=== PATIENT | female | born 1990 | race Caucasian/White ===

== ENCOUNTER 2016-12-30 14:41 | Emergency (ER) | payer OTHER ==
--- NOTE | 2016-12-30 16:36 | ER Document Report ---
ED Medical Screen (RME) - General Chief Complaint: Vaginal Bleeding Stated Complaint: VAGINAL BLEEDING Time Seen by Provider: 12/30/16 16:24 Mode of Arrival: Ambulatory Information source: Patient Notes: Reports to the emergency department with complaints of vaginal bleeding. She reports started yesterday. First menses since having her IUD be removed in October. Worried she is having a miscarriage. TRAVEL OUTSIDE OF THE [place] IN LAST 30 DAYS: No - Related Data Allergies/Adverse Reactions: No Known Allergies Allergy (Verified 12/30/16 15:24) Past Medical History - Past Medical History Cardiac Medical History: Denies: Hx Coronary Artery Disease, Hx Heart Attack, Hx Hypertension Pulmonary Medical History: Denies: Hx Asthma, Hx Bronchitis, Hx COPD, Hx Pneumonia Neurological Medical History: Denies: Hx Cerebrovascular Accident, Hx Seizures Renal/ Medical History: Denies: Hx Peritoneal Dialysis Musculoskeltal Medical History: Denies Hx Arthritis Past Surgical History: Reports: Hx Appendectomy. Denies: Hx Hysterectomy - Immunizations Hx Diphtheria, Pertussis, Tetanus Vaccination: Yes
[2016-12-30 16:54] LABS: ABSOLUTE EOSINOPHILS # (AUTO) 0.3 10^3/uL (0.0-0.6); ABSOLUTE LYMPHOCYTES (AUTO) 2.6 10^3/uL (0.5-4.7); ABSOLUTE MONOCYTES (AUTO) 0.5 10^3/uL (0.1-1.4); ABSOLUTE NEUT (AUTO) 4.4 10^3/uL (1.7-8.2); BASOPHILS % (AUTO) 0.4 % (0-2); EOSINOPHILS % (AUTO) 3.9 % (0-6); HEMATOCRIT 40.8 % (36.0-47.0); HEMOGLOBIN 13.8 g/dL (12.0-15.5); HGB HCT DIFFERENCE 0.6; MEAN CORPUSCULAR HEMOGLOBIN 32.1 pg (27.0-33.4); MEAN CORPUSCULAR VOLUME 94 fl (80-97); MONOCYTES % (AUTO) 6.5 % (3-13); RED BLOOD COUNT 4.32 10^6/uL (3.72-5.28); RED CELL DISTRIBUTION WIDTH 11.8 % (11.5-14.0); SEGMENTED NEUTROPHILS % (AUTO) 56.2 % (42-78); WHITE BLOOD COUNT 7.8 10^3/uL (4.0-10.5)
[2016-12-30 17:17] LABS: ALANINE AMINOTRANSFERASE 37 U/L (9-52); ALBUMIN 4.7 g/dL (3.5-5.0); ALKALINE PHOSPHATASE 70 U/L (38-126); ANION GAP 12 (5-19); ASPARTATE AMINO TRANSFERASE 34 U/L (14-36); BILIRUBIN,DIRECT 0.3 mg/dL (0.0-0.4); BILIRUBIN,TOTAL 0.5 mg/dL (0.2-1.3); BLOOD UREA NITROGEN 16 mg/dL (7-20); CALCIUM 9.8 mg/dL (8.4-10.2); CARBON DIOXIDE 28 mmol/L (22-30); CHLORIDE 101 mmol/L (98-107); CREATININE RESULT 0.76 mg/dL (0.52-1.25); GLUCOSE 86 mg/dL (75-110); POTASSIUM 4.1 mmol/L (3.6-5.0); SODIUM 140.8 mmol/L (137-145); TOTAL PROTEIN 8.1 g/dL (6.3-8.2)
--- NOTE | 2016-12-30 18:06 | ER Document Report ---
ED General - General Chief Complaint: Vaginal Bleeding Stated Complaint: VAGINAL BLEEDING Time Seen by Provider: 12/30/16 16:24 Mode of Arrival: Ambulatory Information source: Patient Notes: Patient presents emergency department with complaints of vaginal bleeding and severe abdominal cramps hot flashes and nausea. She reports symptoms started yesterday. She reports she has gone through several panty liners at least 8 and super tampons. She reports that in October she had her IUD removed. This is her first menses since having it removed. She has taken midol without relief of symptoms. Patient reports she is getting next week. TRAVEL OUTSIDE OF THE [place] IN LAST 30 DAYS: No - HPI Onset: Yesterday Onset/Duration: Persistent Quality of pain: Cramping Severity: Moderate Pain Level: 3 Associated symptoms: Nausea Exacerbated by: Denies Relieved by: Denies Similar symptoms previously: No Recently seen / treated by doctor: No - Related Data Allergies/Adverse Reactions: No Known Allergies Allergy (Verified 12/30/16 15:24) Past Medical History - General Information source: Patient Last Menstrual Period: 12/29/16 - Social History Smoking Status: Unknown if Ever Smoked Cigarette use (# per day): No Frequency of alcohol use: None Drug Abuse: None Family History: Reviewed & Not Pertinent Patient has suicidal ideation: No Patient has homicidal ideation: No - Medical History Medical History: Negative - Past Medical History Cardiac Medical History: Denies: Hx Coronary Artery Disease, Hx Heart Attack, Hx Hypertension Pulmonary Medical History: Denies: Hx Asthma, Hx Bronchitis, Hx COPD, Hx Pneumonia Neurological Medical History: Denies: Hx Cerebrovascular Accident, Hx Seizures Renal/ Medical History: Denies: Hx Peritoneal Dialysis Musculoskeltal Medical History: Denies Hx Arthritis Past Surgical History: Reports: Hx Appendectomy. Denies: Hx Hysterectomy - Immunizations Hx Diphtheria, Pertussis, Tetanus Vaccination: Yes Review of Systems - Review of Systems Notes: Review HPI for review of systems., All other systems negative Physical Exam - Vital signs Vitals: Temp Pulse Resp BP Pulse Ox 98.3 F 69 14 108/63 97 12/30/16 18:25 12/30/16 18:25 12/30/16 18:25 12/30/16 18:25 12/30/16 18:25 - Notes Notes: PHYSICAL EXAMINATION: GENERAL: Well-appearing and in no acute distress HEAD: Atraumatic, normocephalic. EYES: Pupils equal round, extraocular movements intact, sclera anicteric, conjunctiva are normal. ENT: nares patent, . Moist mucous membranes. NECK: Normal range of motion, supple without lymphadenopathy LUNGS: CTAB and equal. No wheezes rales or rhonchi. HEART: Regular rate and rhythm without murmurs ABDOMEN: Soft, no tenderness. No guarding, no rebound BACK: Denies back pain EXTREMITIES: Normal range of motion, no pitting edema. No cyanosis. NEUROLOGICAL: Cranial nerves grossly intact. Normal sensory/motor exams. PSYCH: Normal mood, normal affect. SKIN: Warm, Dry, normal turgor, no rashes or lesions noted Course - Re-evaluation Re-evalutation: 12/30/16 18:16 Labs unremarkable. Patient has a primary care provider at [place]. She was instructed on all lab and importance of follow-up. She was instructed to return to ED for increased bleeding, concerns, She verbalized understanding. - Vital Signs Vital signs: Temp Pulse Resp BP Pulse Ox 98.3 F 69 14 108/63 97 12/30/16 18:25 12/30/16 18:25 12/30/16 18:30 12/30/16 18:25 12/30/16 18:25 - Laboratory Result Diagrams: 12/30/16 16:36 12/30/16 16:36 Discharge - Discharge Clinical Impression: Vaginal bleeding Condition: Stable Disposition: HOME, SELF-CARE Instructions: Vaginal Bleeding ([facility]), [facility] [place], Use of [id number] Ibuprofen ([facility]), [employer] Additional Instructions: *You have been evaluated for abdominal cramps, vaginal bleeding *Take ibuprofen or midal as indicated *Follow up with an FIELD RECORDER or the Health department within one week *Return to ED for worsening condition, changes, needs, concerns *Return to ED if not better in 24 hours Referrals: RAÚL BURNETT III, MD [Primary Care Provider] - Follow up as needed
[2016-12-30 18:26] VITALS: BP 108/63
== END 2016-12-30 18:34 | disposition home or self-care (01) ==
LOC: ER 14:41
DX: N93.8 Other specified abnormal uterine and vaginal bleeding (principal); R10.9 Unspecified abdominal pain; R11.0 Nausea
CPT/HCPCS: 36415; 80053; 84702; 85025; 99284

== ENCOUNTER 2017-08-26 20:21 | Emergency (ER) | payer OTHER ==
[2017-08-26] MEDS ORDERED: LORAZEPAM 0.5 MG TABLET PO ONE (20:57)
--- NOTE | 2017-08-26 20:59 | ER Document Report ---
ED Medical Screen (RME) - General Chief Complaint: Chest Pain Stated Complaint: CHEST PAIN, DIFFICULTY BREATHING Time Seen by Provider: 08/26/17 20:56 Mode of Arrival: Ambulatory Information source: Patient Notes: Patient is a 27-year-old female who presents to the ER today for chest pain shortness of breath that began about 6-8 hours ago per patient. Patient states that she just "feels like I cannot take a deep breath." She denies any recent sick symptoms such as cough, runny nose, congestion, wheezing. Patient states she has a history of anxiety. She denies any cardiac history. She states the chest pain is all across her chest. TRAVEL OUTSIDE OF THE [place] IN LAST 30 DAYS: No - Related Data Allergies/Adverse Reactions: No Known Allergies Allergy (Verified 12/30/16 15:24) Past Medical History - General Information source: Patient - Social History Chew tobacco use (# tins/day): No Frequency of alcohol use: None Drug Abuse: None - Past Medical History Cardiac Medical History: Denies: Hx Coronary Artery Disease, Hx Heart Attack, Hx Hypertension Pulmonary Medical History: Denies: Hx Asthma, Hx Bronchitis, Hx COPD, Hx Pneumonia Neurological Medical History: Denies: Hx Cerebrovascular Accident, Hx Seizures Renal/ Medical History: Denies: Hx Peritoneal Dialysis Musculoskeltal Medical History: Denies Hx Arthritis Past Surgical History: Reports: Hx Appendectomy. Denies: Hx Hysterectomy - Immunizations Hx Diphtheria, Pertussis, Tetanus Vaccination: Yes Review of Systems - Review of Systems Cardiovascular: See HPI Respiratory: See HPI Neurological/Psychological: See HPI Physical Exam - Vital signs Vitals: Temp Pulse Resp BP Pulse Ox 98.1 F 117 H 20 140/81 H 100 08/26/17 20:31 08/26/17 20:31 08/26/17 20:31 08/26/17 20:31 08/26/17 20:31 - Notes Notes: PHYSICAL EXAMINATION: GENERAL: Anxious, but in no acute distress. LUNGS: Patient will not take deep breaths, CTAB and equal. No wheezes rales or rhonchi. HEART: Regular rate and rhythm without murmurs PSYCH: Anxious appearing Course - Vital Signs Vital signs: Temp Pulse Resp BP Pulse Ox 98.1 F 117 H 20 140/81 H 100 08/26/17 20:31 08/26/17 20:31 08/26/17 20:31 08/26/17 20:31 08/26/17 20:31
--- NOTE | 2017-08-26 21:35 | RADIOLOGY REPORT (SQ) ---
EXAM DESCRIPTION: CHEST SINGLE VIEW COMPLETED DATE/TIME: 08/26/2017 9:27 pm REASON FOR STUDY: cp, sob COMPARISON: None. EXAM PARAMETERS: NUMBER OF VIEWS: One view. TECHNIQUE: Single frontal radiographic view of the chest acquired. RADIATION DOSE: NA LIMITATIONS: None. FINDINGS: LUNGS AND PLEURA: No opacities, masses or pneumothorax. No pleural effusion. MEDIASTINUM AND HILAR STRUCTURES: No masses. Contour normal. HEART AND VASCULAR STRUCTURES: Heart normal in size. Normal vasculature. BONES: No acute findings. HARDWARE: None in the chest. OTHER: No other significant finding. IMPRESSION: NO ACUTE RADIOGRAPHIC FINDING IN THE CHEST. TECHNICAL DOCUMENTATION: JOB ID: [id number] [employer]- All Rights Reserved
[2017-08-26 23:25] LABS: ABSOLUTE EOSINOPHILS # (AUTO) 0.1 10^3/uL (0.0-0.6); ABSOLUTE LYMPHOCYTES (AUTO) 3.2 10^3/uL (0.5-4.7); ABSOLUTE MONOCYTES (AUTO) 0.5 10^3/uL (0.1-1.4); ABSOLUTE NEUT (AUTO) 5.8 10^3/uL (1.7-8.2); BASOPHILS % (AUTO) 0.2 % (0-2); EOSINOPHILS % (AUTO) 0.9 % (0-6); HEMATOCRIT 37.7 % (36.0-47.0); HEMOGLOBIN 13.1 g/dL (12.0-15.5); LYMPHOCYTES % (AUTO) 33.2 % (13-45); MEAN CORPUSCULAR HEMOGLOBIN 31.9 pg (27.0-33.4); MEAN CORPUSCULAR HGB CONC 34.7 g/dL (32.0-36.0); MEAN CORPUSCULAR VOLUME 92 fl (80-97); MONOCYTES % (AUTO) 5.6 % (3-13); PLATELET COUNT 247 10^3/uL (150-450); RED BLOOD COUNT 4.11 10^6/uL (3.72-5.28); RED CELL DISTRIBUTION WIDTH 11.5 % (11.5-14.0); SEGMENTED NEUTROPHILS % (AUTO) 60.1 % (42-78); TOTAL CELLS COUNTED % (AUTO) 100 %; WHITE BLOOD COUNT 9.6 10^3/uL (4.0-10.5)
[2017-08-26 23:36] LABS: ALANINE AMINOTRANSFERASE 35 U/L (9-52); ALBUMIN 4.6 g/dL (3.5-5.0); ALKALINE PHOSPHATASE 45 U/L (38-126); ANION GAP 11 (5-19); ASPARTATE AMINO TRANSFERASE 22 U/L (14-36); BILIRUBIN,DIRECT 0.1 mg/dL (0.0-0.4); BILIRUBIN,TOTAL 0.3 mg/dL (0.2-1.3); BLOOD UREA NITROGEN 12 mg/dL (7-20); CALCIUM 9.8 mg/dL (8.4-10.2); CARBON DIOXIDE 26 mmol/L (22-30); CHLORIDE 103 mmol/L (98-107); CREATINE KINASE 39 U/L (30-135); GLUCOSE 90 mg/dL (75-110); LIPASE 153.1 U/L (23-300); POTASSIUM 3.6 mmol/L (3.6-5.0); SODIUM 139.9 mmol/L (137-145); TOTAL PROTEIN 7.6 g/dL (6.3-8.2)
[2017-08-26 23:55] LABS: CREATINE KINASE MB < 0.22 ng/mL (<4.55); TROPONIN I < 0.012 ng/mL
--- NOTE | 2017-08-27 00:39 | ER Document Report ---
ED General - General Chief Complaint: Chest Pain Stated Complaint: CHEST PAIN, DIFFICULTY BREATHING Time Seen by Provider: 08/26/17 20:56 Mode of Arrival: Ambulatory Notes: Patient is a 27-year-old female who presents with complaint of pain in her chest that starts in chest and radiates back. She says it hurts to take a deep breath or cough but also hurts to lay back. She says if she leans forward the pain improves. She denies recent fevers. No recent infections. No recent vomiting or diarrhea. No recent cough or congestion or viral type illnesses. She denies previous history of chest pain like this before. She denies any recent stressors or anxiety. Says pain has been ongoing now for several hours. Patient says only family history of heart problems at young ages with her sister. She says her sister has multiple heart problems and did have an AK age 22. She says she is unsure what all her sisters heart problems more. She says that her sister has had heart problems most her life. Patient herself has never had any history of any type of heart problems. Patient does not smoke. She does not drink alcohol. She denies any drugs. She has no other complaints at this time. No recent leg pain or leg swelling. TRAVEL OUTSIDE OF THE [place] IN LAST 30 DAYS: No - Related Data Allergies/Adverse Reactions: No Known Allergies Allergy (Verified 12/30/16 15:24) Past Medical History - General Information source: Patient - Social History Smoking Status: Never Smoker Chew tobacco use (# tins/day): No Frequency of alcohol use: None Drug Abuse: None Family History: Reviewed & Not Pertinent Patient has suicidal ideation: No Patient has homicidal ideation: No - Past Medical History Cardiac Medical History: Denies: Hx Coronary Artery Disease, Hx Heart Attack, Hx Hypertension Pulmonary Medical History: Denies: Hx Asthma, Hx Bronchitis, Hx COPD, Hx Pneumonia Neurological Medical History: Denies: Hx Cerebrovascular Accident, Hx Seizures Renal/ Medical History: Denies: Hx Peritoneal Dialysis Musculoskeltal Medical History: Denies Hx Arthritis Past Surgical History: Reports: Hx Appendectomy. Denies: Hx Hysterectomy - Immunizations Hx Diphtheria, Pertussis, Tetanus Vaccination: Yes Review of Systems - Review of Systems Notes: My Normal Review Basic REVIEW OF SYSTEMS: CONSTITUTIONAL : Denies fever, chills, or sweats. Denies recent illness. EENT: Denies eye, ear, throat, or mouth pain or symptoms. Denies nasal or sinus congestion. CARDIOVASCULAR: Has chest pain RESPIRATORY: Some shortness of breath. GASTROINTESTINAL: Denies abdominal pain. Denies nausea, vomiting, or diarrhea. Denies constipation. Last BM: MUSCULOSKELETAL: Denies neck or back pain or joint pain or swelling. SKIN: Denies rash or skin lesions. NEUROLOGICAL: Denies altered mental status or loss of consciousness. Denies headache. Denies weakness or paralysis or loss of use of either side. Denies problems with gait or speech. Denies sensory or motor loss. ALL OTHER SYSTEMS REVIEWED AND NEGATIVE. Physical Exam - Vital signs Vitals: Temp Pulse Resp BP Pulse Ox 98.1 F 117 H 20 140/81 H 100 08/26/17 20:31 08/26/17 20:31 08/26/17 20:31 08/26/17 20:31 08/26/17 20:31 - Notes Notes: General Appearance: Well nourished, alert, cooperative, no acute distress, moderate obvious discomfort. Vitals: reviewed, See vital signs table. Head: no swelling or tenderness to the head Eyes: PERRL, EOMI, Conjuctiva clear Mouth: No decreasd moisture Neck: Supple, no neck tenderness, No thyromegaly Chest wall: No redness or swelling to the chest wall. Lungs: No wheezing, No rales, No rhonci, No accessory muscle use, good air exchange bilaterally. Heart: Normal rate, Regular rythm, No murmur, no rub Abdomen: Normal BS, soft, No rigidity, No abdominal tenderness, No guarding, no rebound, no abdominal masses, no organomegaly Extremities: strength 5/5 in all extremities, good pulses in all extremities, no swelling or tenderness in the extremities, no edema. Skin: warm, dry, appropriate color, no rash Neuro: speech clear, oriented x 3, normal affect, responds appropriately to questions. Course - Re-evaluation Re-evalutation: 08/27/17 03:58 EKG #1 is reviewed and interpreted by me. EKG shows sinus tachycardia with rate of [address] segment depression in lead V3 and V4. No ST segment elevation. AK interval, QRS duration, QTc intervals are within normal range. No old EKG available for comparison. EKG #2 is reviewed and interpreted by me. EKG shows normal sinus rhythm with a rate of [address] segment elevation or depression. AK interval, QRS duration, QTc intervals are within normal range. 08/27/17 07:03 The exact cause the patient's chest pain is not 100% clear. Do not suspect coronary disease. Her initial EKG did have very slight ST segment depression but this relieved once her heart rate normalized. She has no ST segment elevation. Troponin and delta troponin are both negative. They did obtain a CTA because of the pain is pleuritic and also rates to her back and also because her tachycardia. CT is negative. Tachycardia is now resolved. Explained to her I do not know the exact cause of her chest pain but do not suspect is anything life-threatening. I will refer her to a personal lines sales rep for further evaluation. Being that the patient's pain is improved with leaning forward I did do a bedside ultrasound and saw no evidence of pericardial effusion. Her EKG is not consistent with pericarditis. She is also not had any recent viral illness to suggest pericarditis. Patient will be discharged home but strongly encouraged to return to ER if she has worsening pain, difficulty breathing, fevers, or she feels that she is worsening in any way. Patient agrees with plan will be discharged home. Dictation of this chart was performed using voice recognition software; therefore, there may be some unintended grammatical errors. - Vital Signs Vital signs: Temp Pulse Resp BP Pulse Ox 97.9 F 74 18 117/62 100 08/27/17 04:13 08/27/17 04:13 08/27/17 04:13 08/27/17 04:13 08/27/17 04:13 - Laboratory Result Diagrams: 08/26/17 23:12 08/26/17 23:12 Laboratory results interpreted by me: 08/27/17 00:10 Urine Protein 30 H Urine Ketones TRACE H Urine Urobilinogen 2.0 H Ur Leukocyte Esterase TRACE H - EKG Interpretation by Me Additional EKG results interpreted by me: 08/27/17 00:38 EKG is reviewed and interpreted by me. EKG shows sinus tachycardia with a rate of [address] segment elevation. Very mild ST segment depression in leads V3 and V4. AK interval, QRS duration, QTc intervals are within normal range. Old EKG is not available for comparison. 08/27/17 00:40 Discharge - Discharge Clinical Impression: Chest pain Qualifiers: Chest pain type: unspecified Qualified Code(s): R07.9 - Chest pain, unspecified Condition: Good Disposition: HOME, SELF-CARE Instructions: Oral Narcotic Medication ([facility]) Additional Instructions: Your blood work looking at your heart was normal. Your Ct scan of your chest did not show evidence of any clotting in your chest. It did show that you have a cyst on your left kidney. These cysts are normally non cancerous; however, it is still important that you have a follow up ultrasound of your kidney within 3 months to reevaluate the cyst to make sure it is not having any concerning features or changes. Please follow up with the personal lines sales rep, Dr. Cross, for reevaluation. please return to the ER immediately if you have worsening pain, fevers, worsening difficulty breathing, or if you feel unwell. Referrals: CRYSTAL CROSS MD [ACTIVE STAFF] - 08/29/17
[2017-08-27] MEDS ORDERED: KETOROLAC TROMETHAMINE INJ/PF 30 MG/1 ML SDV IM ONE (00:53)
[2017-08-27 01:14] LABS: APPEARANCE,URINE SLIGHTLY-CLOUDY; BILIRUBIN,URINE NEGATIVE (NEGATIVE); COLOR,URINE YELLOW; GLUCOSE, URINE NEGATIVE (NEGATIVE); KETONES,URINE TRACE mg/dL (NEGATIVE); LEUKOCYTE ESTERASE,URINE TRACE (NEGATIVE); NITRITE,URINE NEGATIVE (NEGATIVE); PROTEIN,URINE 30 mg/dL (NEGATIVE); URINE SPECIFIC GRAVITY 1.032
[2017-08-27] MEDS ORDERED: MORPHINE SULFATE 10 MG/ML INJ IV ONE (02:55)
[2017-08-27] MEDS ORDERED: NORMAL SALINE 1000 ML 1,000 ML IV ONE (02:55)
--- NOTE | 2017-08-27 03:45 | RADIOLOGY REPORT (SQ) ---
EXAM DESCRIPTION: CTA CHEST COMPLETED DATE/TIME: 08/27/2017 3:26 am REASON FOR STUDY: chest pain COMPARISON: Chest x-ray 08/26/2017. CT abdomen and pelvis 07/01/2016. TECHNIQUE: CT scan of the chest performed using helical scanning technique with dynamic intravenous contrast injection. Images reviewed with lung, soft tissue and bone windows. Reconstructed coronal and sagittal MPR images reviewed. Additional 3 dimensional post-processing performed to develop Maximal Intensity Projection images (MN P). All images stored on PACS. All CT scanners at this facility use dose modulation, iterative reconstruction, and/or weight based d osing when appropriate to reduce radiation dose to as low as reasonably achievable (ALARA). [facility]: Dose Right [facility]: CareDose [facility]: Dose Right [facility]: Teradose 4D [facility]: [employer] CONTRAST TYPE AND DOSE: contrast/concentration: Isovue 370.00 mg/ml; Total Contrast Delivered: 64.0 ml; Total Saline Delivered: 105.0 ml Contrast bolus optimized for the pulmonary arteries. Not diagnostic for the aorta. RENAL FUNCTION: Creatinine 0.90 RADIATION DOSE: CT Rad equipment meets quality standard of care and radiation dose reduction techniq ues were employed. CTDIvol: 9.9 - 14.3 mGy. DLP: 539 mGy-cm. . LIMITATIONS: None. FINDINGS: LUNGS AND PLEURA: No consolidation, pleural effusion or pneumothorax. AORTA AND GREAT VESSELS: No thoracic aortic aneurysm. Contrast bolus not optimized for the aorta. HEART: No pericardial effusion. No significant coronary artery calcifications. PULMONARY ARTERIES: No emboli visualized in the main pulmonary arteries or the segmental branches. HILAR AND MEDIASTINAL STRUCTURES: No identified masses or abnormal nodes. HARDWARE: None in the chest. UPPER ABDOMEN: There is a 1.9 x 1.6 cm cortical exophytic density at the superior pole of the left ki dney, this measures in attenuation more than simple fluid, not significantly changed in size in the i nterval. BONES: No acute finding. 3D MIPS: Confirm above findings. IMPRESSION: 1. No pulmonary emboli. No consolidation or pleural effusion. 2. A 1.9 x 1.6 cm exophytic hyperdense lesion at the superior pole of the left kidney, may represent a proteinaceous or hemorrhagic cyst. Nonemergent renal ultrasound can be obtained for better charac terization. COMMENT: Quality ID # [id number]: Final reports with documentation of one or more dose reduction techniques (e.g., Automated exposure control, adjustment of the mA and/or kV according to patient size, use of iterative reconstruction technique) TECHNICAL DOCUMENTATION: JOB ID: [id number] 2010 [employer]- All Rights Reserved
[2017-08-27] MEDS ORDERED: HYDROCODONE/ACETAMINOPHEN 5-325 MG (6 TAB/ER DISP) PO PRN (03:57)
[2017-08-27 04:25] VITALS: BP 117/62
--- NOTE | 2017-08-27 08:36 | EKG REPORT ---
SEVERITY:- NORMAL ECG - SINUS RHYTHM : Confirmed by: Navdeep Lazar MD 27-Aug-2017 08:34:52
--- NOTE | 2017-08-27 08:36 | EKG REPORT ---
SEVERITY:- ABNORMAL ECG - SINUS TACHYCARDIA NONSPECIFIC REPOL ABNORMALITY, DIFFUSE LEADS : Confirmed by: Navdeep Lazar MD 27-Aug-2017 08:35:09
== END 2017-08-27 04:15 | disposition home or self-care (01) ==
LOC: ER 20:21
DX: R07.9 Chest pain, unspecified (principal); R06.00 Dyspnea, unspecified
CPT/HCPCS: 93005 ×2; 99285; 96372; 96361; 96374; 36415; 82553; 82550; 83690; 84703; 85025; 80053; 81001; 84484; 71045; 71275; 93010 ×2; J1885; J2270; J7030